=== PATIENT | male | born 1990 | race Caucasian/White ===

== ENCOUNTER 2016-12-30 17:54 | Emergency (ER) | payer OTHER ==
[2016-12-30 18:09] VITALS: BP 104/57
--- NOTE | 2016-12-30 19:07 | UC ---
Upper Extremity HPI - HPI Summary HPI Summary: WOKE UP THIS MORNING WITH LEFT ARM PAIN AND TINGLING. PAIN EXTENDS FROM SHOULDER BLADE ALL THE WAY TO TIPS OF FINGERS. STATES HE CAN'T SLEEP. PT IS HOLDING ARM AND UNABLE TO SIT STILL. DENIES CP, SOB, NAUSEA, SWEATS, FEVER, NECK PAIN OR RECENT ILLNESS. - History of Current Complaint Chief Complaint: UCUpperExtremity Stated Complaint: SHOULDER,ARM PAIN,WEAKNESS Time Seen by Provider: 12/30/16 19:00 Hx Obtained From: Patient Onset/Duration: Sudden Onset, Lasting Hours, Still Present Severity Initially: Moderate Severity Currently: Severe Pain Intensity: 8 Pain Scale Used: 0-10 Numeric Location Of Pain: Is Discrete @ - LEFT UPPER EXTREMITY Character: Sharp, Aching Aggravating Factor(s): Nothing Alleviating Factor(s): Nothing Associated Signs And Symptoms: Positive: Weakness, Numbness/Tingling Related History: Dominant Hand Right - Allergies/Home Medications Allergies/Adverse Reactions: Allergies Allergy/AdvReac Type Severity Reaction Status Date / Time No Known Allergies Allergy Verified 05/31/15 18:53 Home Medications: Home Medications Acetaminophen [Acetaminophen Extra Stren] 1,000 mg PO 12/30/16 [History] PMH/Surg Hx/FS Hx/Imm Hx GI/ History: Ulcer - Surgical History Surgical History: Yes Surgery Procedure, Year, and Place: PLASTIC SURGERY - Family History Known Family History: Positive: Diabetes - Social History Alcohol Use: Weekly Substance Use Type: Marijuana Substance Use Comment - Amount & Last Used: weekly Smoking Status (MU): Current Some Day Smoker Amount Used/How Often: TOBACCO FROM [facility] Review of Systems Constitutional: Negative Skin: Negative Respiratory: Negative Cardiovascular: Negative Gastrointestinal: Negative Musculoskeletal: Myalgia All Other Systems Reviewed And Are Negative: Yes Physical Exam Triage Information Reviewed: Yes Appearance: Well-Appearing, Well-Nourished, Pain Distress - MODERATE Vital Signs: Initial Vital Signs Temp 99.6 F 12/30/16 18:06 Pulse 81 12/30/16 18:06 Resp 18 12/30/16 18:06 BP 104/57 12/30/16 18:06 Pulse Ox 100 12/30/16 18:06 Vital Signs Reviewed: Yes Eyes: Positive: Conjunctiva Clear ENT: Positive: Hearing grossly normal Neck: Positive: Supple, Nontender Respiratory Exam: Normal Cardiovascular Exam: Normal Abdomen Description: Positive: Soft Musculoskeletal: Positive: ROM Intact, Other: - TTP DIFFUSELY OVER LEFT ARM FROM SHOULDER TO FINGERS. NEG TINEL, NEG PHALENS. BRISK CAP REFILL, NO SWELLING OR BRUISING OR ERYTHEMA. NEG YERGASONS Neurological: Positive: Alert Psychological: Positive: Age Appropriate Behavior Skin: Negative: rashes Diagnostics - Radiology C-SPINE XRAY Xray Interpretation: Positive (See Comments) - STRAIGHTENING OF CERVICAL LORDOSIS Radiology Interpretation Completed By: Radiologist - EKG Cardiac Rate: NL - 59 BPM Cardiac Rhythm: Sinus: Normal Ectopy: None ST Segment: Normal Upper Extremity Course/Dx - Differential Dx/Diagnosis Provider Diagnoses: INTRACTABLE LEFT ARM PAIN/PARESTHESIAS Discharge - Discharge Plan Condition: Stable Disposition: OTHER Discharge Disposition Comment: TO [facility] CAR Patient Education Materials: Arm Pain (ED) Referrals: No Primary Care Phys,NOPCP [Primary Care Provider] - Additional Instructions: EKG UNREMARKABLE. C-SPINE XRAY SHOWS STRAIGHTENING OF CERVICAL LORDOSIS BUT NO CLEAR ETIOLOGY OF YOUR PAIN. NO IMPROVEMENT WITH HYDROCODONE/APAP. GO DIRECTLY TO THE ER FOR FURTHER EVALUATION OF YOUR PAIN.
[2016-12-30] MEDS ORDERED: HYDROcodone/ACETAMIN 5-325 MG* 1 TAB PO ONE (19:24)
--- NOTE | 2016-12-30 19:57 | RAD ---
Indication: Neck pain, LEFT upper extremity shoulder and arm pain. Weakness. Comparison: No relevant prior exams available on the [facility] PACS for comparison. Technique: AP, open-mouth odontoid, and lateral views cervical spine. Report: Mild straightening relative to normal cervical lordosis without subluxation at any level. Negative for fracture or focal osseous lesion. Preserved disc spaces. Unremarkable soft tissue contours. IMPRESSION: Aside from straightening relative to normal cervical lordosis the examination is normal.
== END 2016-12-30 20:12 ==
LOC: UCEAST 17:54
DX: M79.602 Pain in left arm (principal); R20.2 Paresthesia of skin
CPT/HCPCS: 72040; 93005; 99211; G0463

== ENCOUNTER 2016-12-30 20:59 | Emergency (ER) | payer OTHER ==
[2016-12-30] MEDS ORDERED: Ketorolac INJ* 30 MG/ML 1 ML VIAL IV PUSH ONE (23:20)
[2016-12-30] MEDS ORDERED: Diazepam SYRINGE* 5 MG/ML SYRINGE IV ONE (23:20)
[2016-12-31] MEDS ORDERED: Diazepam TAB(*) 5 MG PO ONE (00:25)
[2016-12-31] MEDS ORDERED: Ketorolac INJ* 60 MG/2 ML VIAL IM ONE (00:25)
--- NOTE | 2016-12-31 00:29 | ED ---
Upper Extremity Pain - HPI Summary HPI Summary: Pt here w/ Lt UE pain upon waking this morning. No known trauma however does report he was climbing a rock wall this week and 2 days ago was much more strenuous than usual. Pain is around his shoulder girdle and radiates down into his arm, most notably his forearm. Hand feels tingling. Feels better w/ arm overhead. Denies numbness or weakness. Pt was given vicodin at urgent care at 1940 - denies cp/sob/n/v/d. - History of Current Complaint Chief Complaint: EDExtremityUpper Stated Complaint: LT ARM/SHOULDER PAIN Time Seen by Provider: 12/30/16 22:11 Hx Obtained From: Patient - Allergies/Home Medications Allergies/Adverse Reactions: Allergies Allergy/AdvReac Type Severity Reaction Status Date / Time No Known Allergies Allergy Verified 05/31/15 18:53 PMH/Surg Hx/FS Hx/Imm Hx Previously Healthy: Yes Endocrine/Hematology History: Denies: Hx Anticoagulant Therapy, Hx Blood Disorders, Hx Coagulopothy Cardiovascular History: Denies: Hx Congenital Heart Disease, Hx Myocardial Infarction GI History: Reports: Hx Ulcer Neurological History: Denies: Hx Headaches - Surgical History Surgery Procedure, Year, and Place: PLASTIC SURGERY Infectious Disease History: No Infectious Disease History: Denies: Traveled Outside the [place] in Last 30 Days - Family History Known Family History: Positive: Diabetes Family History: NON CONTRIBUTORY - Social History Occupation: Student Lives: With Family Alcohol Use: Weekly Hx Substance Use: Yes Substance Use Type: Reports: Marijuana Substance Use Comment - Amount & Last Used: weekly Hx Tobacco Use: Yes Smoking Status (MU): Former Smoker Amount Used/How Often: TOBACCO FROM [facility] Review of Systems Constitutional: Negative Negative: Fever, Chills, Fatigue Eyes: Negative ENT: Negative Cardiovascular: Negative Respiratory: Negative Gastrointestinal: Negative Positive: no symptoms reported Musculoskeletal: Other - see HPI Skin: Negative Neurological: Other - see HPI Positive: Anxious - concerned about sx All Other Systems Reviewed And Are Negative: Yes Physical Exam Triage Information Reviewed: Yes Vital Signs On Initial Exam: Initial Vitals Temp Pulse Resp BP Pulse Ox 99 F 80 16 106/60 100 12/30/16 21:04 12/30/16 21:04 12/30/16 21:04 12/30/16 21:04 12/30/16 21:04 Vital Signs Reviewed: Yes Appearance: Positive: Well-Appearing, Well-Nourished, Pain Distress Skin: Positive: Warm, Dry - no erythema, no edema, no ecchymosis Head/Face: Positive: Normal Head/Face Inspection Eyes: Positive: EOMI ENT: Positive: Hearing grossly normal Respiratory/Lung Sounds: Positive: Breath Sounds Present Cardiovascular: Positive: Pulses are Symmetrical in both Upper and Lower Extremities Musculoskeletal: Positive: Strength/ROM Intact, Pain @ - Lt forearm, especially along flexor extensor tendon insertion; Lt trapezius m TTP; pain w/ wrist/ phalange extension Neurological: Positive: Normal, Sensory/Motor Intact, Alert, Oriented to Person Place, Time, CN Intact II-III Psychiatric: Positive: Anxious - however cooperative and consolable Diagnostics - Vital Signs Vital Signs Temp Pulse Resp BP Pulse Ox 12/30/16 21:26 98.4 F 61 20 122/64 100 12/30/16 21:04 99 F 80 16 106/60 100 - Laboratory Lab Statement: Any lab studies that have been ordered have been reviewed, and results considered in the medical decision making process. Course/Dx - Course Course Of Treatment: Suspect muscle strain/DOMS compounded by dehydration - advised fluids, rest and muscle relaxers as well as massage. Follow-up with [facility] this week. Return to ED if worsens. - Diagnoses Provider Diagnoses: Muscle strain of left forearm, Muscle strain of left shoulder region Discharge - Discharge Plan Condition: Stable Disposition: HOME Prescriptions: Cyclobenzaprine TAB* [Flexeril 10 MG TAB*] 10 mg PO TID PRN #15 tab PRN Reason: Pain Patient Education Materials: Muscle Strain (ED), Muscle Spasm (ED) Referrals: [facility] [Outside] Additional Instructions: You appear to have muscle strain with spasm. This may have been compounded by dehydration. It is important that you rehydrate and take acetaminophen as well as muscle relaxers to help with pain. You may also benefit from heat and a massage. Follow-up with PCP this week as you may also benefit from physical therapy if pain persists. *If you develop chest pain, shortness of breath, difficulty breathing, weakness or numbness, return to ED
[2016-12-31 01:22] VITALS: BP 127/72
--- NOTE | 2016-12-31 07:54 | RAD ---
HISTORY: Atraumatic left arm pain COMPARISONS: None relevant TECHNIQUE: Multiple transverse and longitudinal ultrasound images were obtained of the left upper extremity from the level of the internal jugular vein inferiorly through to the infra-cubital veins using grayscale, color Doppler, and spectral Doppler imaging with and without compression and with augmentation. Comparison images were obtained of the contralateral internal jugular vein and subclavian vein. FINDINGS: VEINS: The venous system of the left upper extremity is compressible throughout its course, with normal flow on color Doppler imaging and normal response to augmentation on spectral Doppler imaging. SOFT TISSUES: Unremarkable. OTHER FINDINGS: None. IMPRESSION: NO LEFT UPPER EXTREMITY DEEP VEIN THROMBOSIS
== END 2016-12-31 01:21 | disposition home or self-care (01) ==
LOC: ED 20:59
DX: S56.912A Strain of unspecified muscles, fascia and tendons at forearm level, left arm, initial encounter (principal); S46.912A Strain of unspecified muscle, fascia and tendon at shoulder and upper arm level, left arm, initial encounter; X58.XXXA Exposure to other specified factors, initial encounter; Y93.9 Activity, unspecified; Y92.9 Unspecified place or not applicable; M79.632 Pain in left forearm; M25.512 Pain in left shoulder; R20.2 Paresthesia of skin; F12.90 Cannabis use, unspecified, uncomplicated; Z87.891 Personal history of nicotine dependence
CPT/HCPCS: 96372; 99282; J1885

== ENCOUNTER 2017-01-04 22:07 | Emergency (ER) | payer OTHER ==
[2017-01-05] MEDS ORDERED: HYDROcodone/ACETAMIN 5-325 MG* 1 TAB PO ONE (00:04)
[2017-01-05 00:38] LABS: Hematocrit 45 % (42-52); Hemoglobin 15.4 g/dl (14.0-18.0); Mean Corpuscular HGB Conc 34 g/dl (31-36); Mean Corpuscular Hemoglobin 31 pg (27-31); Mean Corpuscular Volume 91 fL (80-94); Mean Platelet Volume 9 um3 (7.4-10.4); Red Blood Count 5.02 10^6/ul (4.0-5.4); Red Cell Distribution Width 13 % (10.5-15); White Blood Count 7.6 10^3/ul (3.5-10.8)
[2017-01-05 00:51] LABS: Albumin 4.6 g/dL (3.2-5.2); BUN/Creatinine Ratio 13.6 (8-20); C Reactive Protein 1.61 mg/L (< 5.00); Calcium 9.6 mg/dL (8.6-10.3); EGFR African American 104.9 (>60); EGFR Non-African American 81.6 (>60); Globulin 2.4 g/dL (2-4); Total Bilirubin 0.5 mg/dL (0.2-1.0)
--- NOTE | 2017-01-05 00:52 | ED ---
Upper Extremity Pain - HPI Summary HPI Summary: Patient presents to the ED with left upper arm pain, specifically over the brachioradialis which radiates down the arm to the fingertips with numbness and tingling. Pain is 10/10, intermittent and stabbing. He states he awoke up with this pain 5 days ago after drinking ETOH. He first felt the pain in his bicep throughout the brachioradialis, base of the neck and notes to some pain intermittent now in the trapezius, supraspinatus and infraspinatus. Contributory activity includes rock climbing the day before, but he denies injury or pain at that time. Denies bug bites including ticks. He denies any previous injuries to the arm, injection and drug use, immunocompromised state, URI, or hospitalization. There is no palpable mass. Scapula bilaterally are symmetrical. No pain to the lateral sides of the neck. Neck has full ROM. He was seen at and in the ED 5 days ago and given Valium. He states the pain is not improving with this medication, except for making him fatigued. The pain has not gotten better or worse. Denies temperature changes or color changes. Pulses +2 bilaterally and cap refill < 2 sec. VS stable. - History of Current Complaint Chief Complaint: EDExtremityUpper Stated Complaint: LEFT ARM PAIN Time Seen by Provider: 01/04/17 22:45 Hx Obtained From: Patient Onset/Duration: Started Days Ago Timing: Intermittent Severity Initially: Moderate Severity Currently: Moderate Pain Location: Shoulder Character: Sharp, Aching Aggravating Factor(s): Nothing Alleviating Factor(s): Nothing Associated Signs & Symptoms: Positive: Numbness/Tingling Related History: Dominant Hand Right - Risk Factors Non-Orthopedic Risk Factor: Negative DVT Risk Factors: Negative Septic Arthritis Risk Factor: Negative Compartment Syndrome Risk Factors: Pain - Allergies/Home Medications Allergies/Adverse Reactions: Allergies Allergy/AdvReac Type Severity Reaction Status Date / Time No Known Allergies Allergy Verified 01/04/17 22:13 PMH/Surg Hx/FS Hx/Imm Hx Previously Healthy: Yes Endocrine/Hematology History: Denies: Hx Anticoagulant Therapy, Hx Blood Disorders Cardiovascular History: Denies: Hx Congenital Heart Disease, Hx Myocardial Infarction GI History: Reports: Hx Ulcer Neurological History: Denies: Hx Headaches - Surgical History Surgery Procedure, Year, and Place: PLASTIC SURGERY - Immunization History Hx Pertussis Vaccination: No Immunizations Up to Date: Unable to Obtain/Confirm Infectious Disease History: No Infectious Disease History: Denies: Traveled Outside the [place] in Last 30 Days - Family History Known Family History: Positive: Diabetes Family History: NON CONTRIBUTORY - Social History Occupation: Employed Part-time Lives: Dormitory/Roommates Alcohol Use: Weekly Hx Substance Use: Yes Substance Use Type: Reports: Marijuana Substance Use Comment - Amount & Last Used: weekly Hx Tobacco Use: Yes Smoking Status (MU): Former Smoker Amount Used/How Often: TOBACCO FROM [facility] Review of Systems Constitutional: Negative Eyes: Negative Cardiovascular: Negative Respiratory: Negative Positive: no symptoms reported, see HPI Positive: Myalgia - right bicep pain Skin: Negative Positive: Paresthesia, Numbness All Other Systems Reviewed And Are Negative: Yes Physical Exam - Summary Physical Exam Summary: There is no palpable mass. Scapula bilaterally are symmetrical. No pain to the lateral sides of the neck. Neck has full ROM. No evidence of tightness of the upper trapezius and levator scapula on the dorsal side or tightness of the pectoralis major and minor. Full ROM. Pain is not worse with abduction or adduction. Triage Information Reviewed: Yes Vital Signs On Initial Exam: Initial Vitals Temp Pulse Resp BP Pulse Ox 98.7 F 83 16 121/75 98 01/04/17 22:10 01/04/17 22:10 01/04/17 22:10 01/04/17 22:10 01/04/17 22:10 Vital Signs Reviewed: Yes Appearance: Positive: Well-Appearing, Well-Nourished Skin: Positive: Warm, Skin Color Reflects Adequate Perfusion Head/Face: Positive: Normal Head/Face Inspection Eyes: Positive: EOMI, SUKHDEV, Conjunctiva Clear Neck: Positive: Supple, No Lymphadenopathy Respiratory/Lung Sounds: Positive: Clear to Auscultation, Breath Sounds Present Cardiovascular: Positive: Normal, Pulses are Symmetrical in both Upper and Lower Extremities Musculoskeletal: Positive: Normal, Strength/ROM Intact, Pain @ - right bicep - not worse with ROM Neurological: Positive: Sensory/Motor Intact, Alert, Oriented to Person Place, Time, Speech Normal Psychiatric: Positive: Normal AVPU Assessment: Alert - Nicolle Coma Scale Coma Scale Total: 15 Diagnostics - Vital Signs Vital Signs Temp Pulse Resp BP Pulse Ox 01/04/17 22:26 98.2 F 80 18 132/79 99 01/04/17 22:10 98.7 F 83 16 121/75 98 - Laboratory Lab Results: Lab Results 01/05/17 Range/Units 00:20 WBC 7.6 (3.5-10.8) 10^3/ul RBC 5.02 (4.0-5.4) 10^6/ul Hgb 15.4 (14.0-18.0) g/dl Hct 45 (42-52) % MCV 91 (80-94) fL MCH 31 (27-31) pg MCHC 34 (31-36) g/dl RDW 13 (10.5-15) % Plt Count 173 (150-450) 10^3/ul MPV 9 (7.4-10.4) um3 Neut % (Auto) 62.6 (38-83) % Lymph % (Auto) 26.3 (25-47) % [place] % (Auto) 8.8 (1-9) % Eos % (Auto) 1.6 (0-6) % Baso % (Auto) 0.7 (0-2) % Absolute Neuts (auto) 4.8 (1.5-7.7) 10^3/ul Absolute Lymphs (auto) 2.0 (1.0-4.8) 10^3/ul Absolute Monos (auto) 0.7 (0-0.8) 10^3/ul Absolute Eos (auto) 0.1 (0-0.6) 10^3/ul Absolute Basos (auto) 0.1 (0-0.2) 10^3/ul Absolute Nucleated RBC 0 10^3/ul Nucleated RBC % 0 ESR Pending Result Diagrams: 01/05/17 00:20 01/05/17 00:20 Lab Statement: Any lab studies that have been ordered have been reviewed, and results considered in the medical decision making process. Course/Dx - Course Course Of Treatment: Patient presents with pain over the left bicep radiating from the brachioradialis to the fingertips with numbness and tingling. No evidence of thoracic outlet syndrome as pain is not worse with compression of the brachial plexus. Not worse with passive and active ROM. Pulses +2 bilaterally and cap refill < 2 sec. No palpable nodules or ecchymosis, swelling or "francisco" deformity. Obtained labs including lyme titer. Pain managemet given in ED. Labs obtained and WNL. Discussed patient case with Dr. Salmon who saw patient in the ED. Agrees with plan to discharge with pain management at this time with nerve medication. He is encouraged to continue with copious fluids, ibuprofen, moist heat to the area as if this were a muscular injury. For worsening pain not well controlled with conservative measures, he will take the pain medication. He will follow up with Dr. Cool for worsening pain or pain not improved throughout the weekend. He is given oxycodone and gababentin as prescriptions. Will await lyme results. US and cervical spine images performed upon last visit to the ED and WNL. - Diagnoses Differential Diagnosis/HQI/PQRI: Positive: Other - corocobrachialis pain, brachialis neuritis, bicep tendinopathy, muscular strain Provider Diagnoses: Biceps muscle strain Discharge - Discharge Plan Condition: Stable Disposition: HOME Patient Education Materials: Tendinitis (ED) Referrals: No Primary Care Phys,NOPCP [Primary Care Provider] - Jason Cool MD [Medical Doctor] - Additional Instructions: Follow up with Dr. Cool Moist heat to the area Ibuprofen 600mg three times daily (do not take immediately before bed or lying down) For pain not well controlled with ibuprofen, you may take Oxycodone Take the Gabapentin daily until follow up with Orthopedist. Drink plenty of fluids Continue to try to stretch out the muscle and massage Images - Images Full Body (No Head): 1 - pain radiating to the fingertips with numbness and tingling
[2017-01-05 01:45] VITALS: BP 119/69
[2017-01-05 01:47] LABS: Erythrocyte Sed Rate 8 mm/Hr (0-14)
[2017-01-07 20:24] LABS: B garinii/B afzelii PCR Negative (Negative); B mayonii PCR Negative (Negative)
== END 2017-01-05 01:44 | disposition home or self-care (01) ==
LOC: ED 22:07
DX: S46.211A Strain of muscle, fascia and tendon of other parts of biceps, right arm, initial encounter (principal); Z87.891 Personal history of nicotine dependence; X58.XXXA Exposure to other specified factors, initial encounter; Y92.9 Unspecified place or not applicable
CPT/HCPCS: 36415; 80053; 82550; 85025; 85652; 86140; 87476; 87798; 99282